=== PATIENT | male | born 1940 | race Caucasian/White ===

== ENCOUNTER 2020-10-15 17:43 | Inpatient (IN) ==
[2020-10-15] MEDS ORDERED: Albuterol 2.5 MG/3 ML NEBULIZER IH PRN (17:57)
[2020-10-15] MEDS: Budesonide/Formoterol 160/4.5 1 PUFF INH IH SCH (21:41)
[2020-10-15] MEDS: Ondansetron ODT 4 MG TAB.RAPDIS SL SCH ×2 (22:02→23:43)
[2020-10-15] MEDS: *HR* HYDROcodone/Acet 5/325 mg TABLET PO SCH (22:02)
[2020-10-16] MEDS: *HR* HYDROcodone/Acet 5/325 mg TABLET PO SCH ×4 (00:30→17:54)
[2020-10-16] MEDS: hydroCHLOROthiazide 25 MG TABLET PO PRN (00:58)
[2020-10-16 03:34] LABS: Basophils % 0.2 %; Eosinophils % 0.1 %; Hematocrit 36.1 % (37.5-50.1); Immature Granulocytes % 1.7 % (0-4); Lymphocytes # 1.3 K/mcL (0.6-4.6); Lymphocytes % 12.1 %; Mean Corpuscular HGB Conc 33.2 g/dL (31.6-35.5); Mean Corpuscular Hemoglobin 28.7 pg (28.0-33.3); Mean Corpuscular Volume 86.4 fL (83.0-100.0); Mean Platelet Volume 10.3 fL (9.4-12.4); Monocytes # 0.6 K/mcL (0.0-1.3); Monocytes % 6.1 %; Neutrophils # 8.4 K/mcL (1.6-8.9); Platelet Count 279 K/mcL (140-400); Red Blood Count 4.18 M/mcL (4.19-5.50); Red Cell Distribution Width 14.2 % (11.5-14.5); Segmented Neutrophils % 79.8 %; White Blood Count 10.5 K/mcL (4.3-11.1)
[2020-10-16 05:18] LABS: BUN/Creatinine Ratio 27 (6-26); Blood Urea Nitrogen 23 mg/dL (8-23); Calcium 7.5 mg/dL (8.6-10.3); Carbon Dioxide 23 mEq/L (23-29); Chloride 109 mEq/L (98-107); Glucose 110 mg/dL (70-105); Osmolality,Calculated 292 (280-300); Potassium 3.9 mEq/L (3.5-5.1); Sodium 139 mEq/L (136-145); eGFR For African Americans > 60 (> 60); eGFR For Non-African Americans > 60 (> 60)
[2020-10-16] MEDS: Ondansetron ODT 4 MG TAB.RAPDIS SL SCH ×3 (05:54→17:55)
[2020-10-16] MEDS ORDERED: predniSONE 10 MG TABLET PO SCH (09:00)
[2020-10-16] MEDS: Budesonide/Formoterol 160/4.5 1 PUFF INH IH SCH ×2 (09:29→20:54)
[2020-10-16] MEDS: Aspirin Enteric Coated 81 MG Tablet PO SCH (10:32)
[2020-10-16] MEDS: Multivit/Ca/Min/Fe/FA 1 TAB TABLET PO SCH (10:32)
[2020-10-16] MEDS: Finasteride 5 MG TABLET PO SCH (10:32)
[2020-10-16] MEDS: *HR* Rivaroxaban 10 MG TABLET PO SCH (10:33)
[2020-10-16] MEDS: lisinopriL 10 MG TABLET PO SCH (10:33)
[2020-10-16 14:57] LABS: INR 1.8; Prothrombin Time 20.3 Seconds (9.4-12.1)
[2020-10-17] MEDS: Ondansetron ODT 4 MG TAB.RAPDIS SL SCH ×2 (01:11→06:41)
[2020-10-17] MEDS: *HR* HYDROcodone/Acet 5/325 mg TABLET PO SCH ×2 (01:11→06:40)
[2020-10-17] MEDS: Budesonide/Formoterol 160/4.5 1 PUFF INH IH SCH ×2 (08:05→22:54)
[2020-10-17] MEDS: Aspirin Enteric Coated 81 MG Tablet PO SCH (08:33)
[2020-10-17] MEDS: Finasteride 5 MG TABLET PO SCH (08:33)
[2020-10-17] MEDS: predniSONE 20 MG TABLET PO SCH (08:33)
[2020-10-17] MEDS: lisinopriL 10 MG TABLET PO SCH (08:33)
[2020-10-17] MEDS: Multivit/Ca/Min/Fe/FA 1 TAB TABLET PO SCH (08:33)
[2020-10-17] MEDS: *HR* Rivaroxaban 10 MG TABLET PO SCH (08:34)
[2020-10-17] MEDS ORDERED: *HR* HYDROcodone/Acet 5/325 mg TABLET PO PRN (11:32)
[2020-10-17] MEDS ORDERED: Ondansetron ODT 4 MG TAB.RAPDIS SL PRN (11:34)
[2020-10-18] MEDS: Multivit/Ca/Min/Fe/FA 1 TAB TABLET PO SCH (08:17)
[2020-10-18] MEDS: hydroCHLOROthiazide 25 MG TABLET PO PRN (08:17)
[2020-10-18] MEDS: *HR* Rivaroxaban 10 MG TABLET PO SCH (08:17)
[2020-10-18] MEDS: Aspirin Enteric Coated 81 MG Tablet PO SCH (08:17)
[2020-10-18] MEDS: Finasteride 5 MG TABLET PO SCH (08:17)
[2020-10-18] MEDS: lisinopriL 10 MG TABLET PO SCH (08:17)
[2020-10-18] MEDS: predniSONE 20 MG TABLET PO SCH (08:18)
[2020-10-18] MEDS: Budesonide/Formoterol 160/4.5 1 PUFF INH IH SCH (08:35)
[2020-10-19] MEDS: Budesonide/Formoterol 160/4.5 1 PUFF INH IH SCH ×3 (00:35→22:45)
[2020-10-19] MEDS: Aspirin Enteric Coated 81 MG Tablet PO SCH (08:55)
[2020-10-19] MEDS: Multivit/Ca/Min/Fe/FA 1 TAB TABLET PO SCH (08:55)
[2020-10-19] MEDS: Finasteride 5 MG TABLET PO SCH (08:55)
[2020-10-19] MEDS: lisinopriL 10 MG TABLET PO SCH (08:55)
[2020-10-19] MEDS: predniSONE 20 MG TABLET PO SCH (08:55)
[2020-10-19] MEDS: *HR* Rivaroxaban 10 MG TABLET PO SCH (08:56)
[2020-10-20] MEDS: predniSONE 20 MG TABLET PO SCH (09:13)
[2020-10-20] MEDS: Aspirin Enteric Coated 81 MG Tablet PO SCH (09:13)
[2020-10-20] MEDS: Multivit/Ca/Min/Fe/FA 1 TAB TABLET PO SCH (09:13)
[2020-10-20] MEDS: *HR* Rivaroxaban 10 MG TABLET PO SCH (09:13)
[2020-10-20] MEDS: Finasteride 5 MG TABLET PO SCH (09:13)
[2020-10-20] MEDS: lisinopriL 10 MG TABLET PO SCH (09:13)
[2020-10-20] MEDS: Budesonide/Formoterol 160/4.5 1 PUFF INH IH SCH ×2 (10:24→23:08)
[2020-10-21] MEDS: hydroCHLOROthiazide 25 MG TABLET PO SCH (08:28)
[2020-10-21] MEDS: Finasteride 5 MG TABLET PO SCH (08:28)
[2020-10-21] MEDS: *HR* Rivaroxaban 10 MG TABLET PO SCH (08:29)
[2020-10-21] MEDS: Aspirin Enteric Coated 81 MG Tablet PO SCH (08:29)
[2020-10-21] MEDS: predniSONE 20 MG TABLET PO SCH (08:29)
[2020-10-21] MEDS: lisinopriL 20 MG TABLET PO SCH (08:29)
[2020-10-21] MEDS: Multivit/Ca/Min/Fe/FA 1 TAB TABLET PO SCH (08:29)
[2020-10-21] MEDS: Budesonide/Formoterol 160/4.5 1 PUFF INH IH SCH ×2 (10:20→20:10)
[2020-10-22] MEDS: hydroCHLOROthiazide 25 MG TABLET PO SCH (06:37)
[2020-10-22] MEDS: lisinopriL 20 MG TABLET PO SCH (06:39)
[2020-10-22] MEDS: predniSONE 20 MG TABLET PO SCH (08:06)
[2020-10-22] MEDS: Multivit/Ca/Min/Fe/FA 1 TAB TABLET PO SCH (08:06)
[2020-10-22] MEDS: Aspirin Enteric Coated 81 MG Tablet PO SCH (08:06)
[2020-10-22] MEDS: *HR* Rivaroxaban 10 MG TABLET PO SCH (08:06)
[2020-10-22] MEDS: Finasteride 5 MG TABLET PO SCH (08:06)
[2020-10-22] MEDS ORDERED: lisinopriL 20 MG TABLET PO ONE (09:00)
[2020-10-22] MEDS: Budesonide/Formoterol 160/4.5 1 PUFF INH IH SCH ×2 (10:13→21:53)
[2020-10-23] MEDS: Budesonide/Formoterol 160/4.5 1 PUFF INH IH SCH ×2 (07:48→21:38)
[2020-10-23] MEDS: hydroCHLOROthiazide 25 MG TABLET PO SCH (07:56)
[2020-10-23] MEDS: Multivit/Ca/Min/Fe/FA 1 TAB TABLET PO SCH (07:57)
[2020-10-23] MEDS: lisinopriL 20 MG TABLET PO SCH (07:57)
[2020-10-23] MEDS: Finasteride 5 MG TABLET PO SCH (07:57)
[2020-10-23] MEDS: *HR* Rivaroxaban 10 MG TABLET PO SCH (07:57)
[2020-10-23] MEDS: Aspirin Enteric Coated 81 MG Tablet PO SCH (07:57)
[2020-10-23] MEDS: predniSONE 20 MG TABLET PO SCH (07:58)
[2020-10-24 06:30] LABS: Basophils % 0.2 %; Eosinophils % 0.1 %; Hematocrit 41.6 % (37.5-50.1); Hemoglobin 13.3 g/dL (12.9-16.9); Immature Granulocytes % 0.5 % (0-4); Lymphocytes % 16.4 %; Mean Corpuscular Hemoglobin 27.7 pg (28.0-33.3); Mean Corpuscular Volume 86.7 fL (83.0-100.0); Mean Platelet Volume 10.5 fL (9.4-12.4); Monocytes # 0.9 K/mcL (0.0-1.3); Monocytes % 7.1 %; Neutrophils # 9.2 K/mcL (1.6-8.9); Platelet Count 276 K/mcL (140-400); Red Cell Distribution Width 13.7 % (11.5-14.5); Segmented Neutrophils % 75.7 %; White Blood Count 12.2 K/mcL (4.3-11.1)
[2020-10-24 06:51] LABS: BUN/Creatinine Ratio 27 (6-26); Blood Urea Nitrogen 31 mg/dL (8-23); Calcium 8.1 mg/dL (8.6-10.3); Carbon Dioxide 28 mEq/L (23-29); Chloride 104 mEq/L (98-107); Glucose 85 mg/dL (70-105); Osmolality,Calculated 296 (280-300); Potassium 3.8 mEq/L (3.5-5.1); Sodium 140 mEq/L (136-145); eGFR For African Americans > 60 (> 60); eGFR For Non-African Americans > 60 (> 60)
[2020-10-24] MEDS: lisinopriL 20 MG TABLET PO SCH (08:08)
[2020-10-24] MEDS: predniSONE 10 MG TABLET PO SCH (08:08)
[2020-10-24] MEDS: Aspirin Enteric Coated 81 MG Tablet PO SCH (08:08)
[2020-10-24] MEDS: *HR* Rivaroxaban 10 MG TABLET PO SCH (08:08)
[2020-10-24] MEDS: hydroCHLOROthiazide 25 MG TABLET PO SCH (08:08)
[2020-10-24] MEDS: Multivit/Ca/Min/Fe/FA 1 TAB TABLET PO SCH (08:08)
[2020-10-24] MEDS: Finasteride 5 MG TABLET PO SCH (08:09)
[2020-10-24] MEDS: Budesonide/Formoterol 160/4.5 1 PUFF INH IH SCH ×2 (11:23→20:36)
[2020-10-25] MEDS: predniSONE 10 MG TABLET PO SCH (07:58)
[2020-10-25] MEDS: *HR* Rivaroxaban 10 MG TABLET PO SCH (07:58)
[2020-10-25] MEDS: Multivit/Ca/Min/Fe/FA 1 TAB TABLET PO SCH (07:59)
[2020-10-25] MEDS: Aspirin Enteric Coated 81 MG Tablet PO SCH (07:59)
[2020-10-25] MEDS: hydroCHLOROthiazide 25 MG TABLET PO SCH (07:59)
[2020-10-25] MEDS: Finasteride 5 MG TABLET PO SCH (07:59)
[2020-10-25] MEDS: lisinopriL 20 MG TABLET PO SCH (07:59)
[2020-10-25] MEDS: Budesonide/Formoterol 160/4.5 1 PUFF INH IH SCH ×2 (09:57→20:08)
[2020-10-26 07:55] VITALS: BP 150/92
[2020-10-26] MEDS: predniSONE 10 MG TABLET PO SCH (08:34)
[2020-10-26] MEDS: Aspirin Enteric Coated 81 MG Tablet PO SCH (08:34)
[2020-10-26] MEDS: Finasteride 5 MG TABLET PO SCH (08:34)
[2020-10-26] MEDS: hydroCHLOROthiazide 25 MG TABLET PO SCH (08:35)
[2020-10-26] MEDS: lisinopriL 20 MG TABLET PO SCH (08:35)
[2020-10-26] MEDS: *HR* Rivaroxaban 10 MG TABLET PO SCH (08:35)
[2020-10-26] MEDS: Multivit/Ca/Min/Fe/FA 1 TAB TABLET PO SCH (08:35)
[2020-10-26] MEDS: Budesonide/Formoterol 160/4.5 1 PUFF INH IH SCH (10:00)
[2020-10-31] MEDS ORDERED: predniSONE 20 MG TABLET PO SCH (09:00)
[2020-11-07] MEDS ORDERED: predniSONE 10 MG TABLET PO SCH (09:00)
== END 2020-10-26 11:45 | disposition home health service (06) | DRG 945 ==
LOC: INPPIK 20:16
PROVIDERS: ADMIT Family Medicine; ATTEND Family Medicine